=== PATIENT | male | born 1945 | race Two or more races ===

== ENCOUNTER 2019-07-14 13:02 | Inpatient (IN) | payer MEDICARE, OTHER ==
--- NOTE | 2019-07-14 13:40 | ED ---
Shortness of Breath - HPI Summary HPI Summary: 74-year-old Kyrgyz-speaking male with a significant past medical history type 2 diabetes, BPH, testicular cancer with metastases who has completed chemotherapy in April, recently tested positive for COVID-19 approximately 30 days ago presents to the emergency department today with a chief complaint of shortness of breath 3 days. Patient states his shortness of breath is made worse with exertion and he does not wear oxygen at home. Patient denies associated chest pain but does have lightheadedness with his shortness of breath. Patient has not taken any medication for his symptoms prior to arrival. Patient denies fevers, chest pain, abdominal pain, pain with urination , nausea, vomiting, diarrhea, rash. Patient denies smoking history. Patient denies past medical history of COPD and CHF. - History of Current Complaint Chief Complaint: EDShortnessOfBreath Time Seen by Provider: 07/14/19 13:09 Hx Obtained From: Patient, Varnish Thinner - Kyrgyz speaking Onset/Duration: Gradual Onset Dyspnea At: Rest Alleviating Factors: Oxygen Associated Signs & Symptoms: Cough (Nonproductive), Wheezing - Allergy/Home Medications Allergies/Adverse Reactions: Allergies Allergy/AdvReac Type Severity Reaction Status Date / Time No Known Allergies Allergy Verified 07/14/19 13:31 Home Medications: Home Medications Aspirin EC TAB* [Ecotrin EC Low Dose 81 MG*] 81 mg PO DAILY 07/14/19 [History Confirmed 07/14/19] Carvedilol TAB* [Coreg TAB*] 3.125 mg PO DAILY 07/14/19 [History Confirmed 07/13] Dorzolamide 2% OPTH (NF) [Trusopt 2% OPTH (NF)] 1 drop BOTH EYES DAILY 07/14/19 [History Confirmed 07/14/19] Ergocalciferol (Vitamin D2) [Vitamin D2] 50,000 unit PO DAILY 07/14/19 [History Confirmed 07/14/19] Finasteride TAB* [Proscar TAB*] 5 mg PO DAILY 07/14/19 [History Confirmed ] Lactulose* 15 ml PO DAILY 07/14/19 [History Confirmed 07/14/19] Latanoprost 0.005%* [Xalatan 0.005%*] 1 drop BOTH EYES QPM 07/14/19 [History Confirmed 07/14/19] Mirabegron (NF) [Myrbetriq (NF)] 25 mg PO DAILY 07/14/19 [History Confirmed ] Simvastatin TAB(NF) [Zocor(NF)] 20 mg PO DAILY 07/14/19 [History Confirmed 07/13] Sitaglip/Metform XR50/1000(NR) [Janumet Xr (NR)] 1 tab PO DAILY [History Confirmed 07/14/19] Timolol Maleate [Istalol] 1 drop BOTH EYES DAILY 07/14/19 [History Confirmed ] PMH/Surg Hx/FS Hx/Imm Hx Infectious Disease History: No Infectious Disease History: Denies: Traveled Outside the [place] in Last 30 Days - Social History Alcohol Use: None Substance Use Type: Reports: None Smoking Status (MU): Never Smoked Tobacco Review of Systems Constitutional: Negative Eyes: Negative ENT: Negative Cardiovascular: Negative Positive: Shortness Of Breath, Cough Gastrointestinal: Negative Genitourinary: Negative Musculoskeletal: Negative Skin: Negative Neurological/Mental Status: Negative Psychological: Normal All Other Systems Reviewed And Are Negative: Yes Physical Exam - Summary Physical Exam Summary: Patient in no acute distress. Patient seems fatigued and is having some difficulty speaking in full sentences. Pt has mild accessory muscle use with breathing. Triage Information Reviewed: Yes Vital Signs On Initial Exam: Initial Vitals Temp Pulse Resp BP Pulse Ox 96.8 F 94 12 116/80 97 07/14/19 13:23 07/14/19 13:23 07/14/19 13:23 07/14/19 13:23 07/14/19 13:23 Vital Signs Reviewed: Yes Appearance: Positive: Well-Appearing, No Pain Distress, Well-Nourished, Thin Skin: Positive: Warm, Skin Color Reflects Adequate Perfusion Eyes: Positive: EOMI, JULIA ENT: Positive: Hearing grossly normal Respiratory/Lung Sounds: Positive: Breath Sounds Present, Decreased Breath Sounds, Wheezes, Unable to speak in full sentences Cardiovascular: Positive: RRR, S1, S2 Abdomen Description: Positive: Nontender, Soft Bowel Sounds: Positive: Present Musculoskeletal: Positive: Strength/ROM Intact Neurological: Positive: Sensory/Motor Intact, Alert, Oriented to Person Place, Time, Normal Gait, Facial Symmetry, Speech Normal Psychiatric: Positive: Affect/Mood Appropriate, Anxious AVPU Assessment: Alert Procedures - Sedation Patient Received Moderate/Deep Sedation with Procedure: No Diagnostics - Vital Signs Vital Signs Temp Pulse Resp BP Pulse Ox 07/14/19 13:23 96.8 F 94 12 116/80 97 - Laboratory Result Diagrams: 07/15/19 05:30 07/15/19 05:30 Lab Statement: Any lab studies that have been ordered have been reviewed, and results considered in the medical decision making process. Course/Dx - Course Course Of Treatment: Patient was evaluated in the emergency department today for shortness of breath. Vitals were noted. Patient was hypoxic at approximately 84% on room air. Patient is satting at 99% on 4 L of oxygen via nasal cannula. EKG was done promptly which shows no evidence of STEMI. Normal sinus rhythm at a rate of 94 bpm. There is evidence of a right bundle branch block. There are ST depressions in lead V2 and V3 however there are no reciprocal ST elevations. No prior EKGs available for comparison. Chest x-ray was done which showed diffuse mixed interstitial and airspace disease. Labs show no leukocytosis with a white blood cell count of 7.5. There is mild anemia noted with an H&H of 10.9 and 32. There are no priors available for comparison. Lactic acid is 1.3 not significant for sepsis. There are no significant electrolyte abnormalities. There is a significant elevation in CRP at 121 likely due to pulmonary inflammation. Troponin returned at 0.02. BNP 53 , not suggestive for Acute heart failure. Hospitalist, Dr. Hsu was consulted for admission of the patient due to interstitial lung disease secondary to COVID-19 causing significant hypoxia with a O2 sat of 82% on RA. Labor Arbitrator agrees to admit. - Diagnoses Differential Diagnosis/HQI/PQRI: Positive: Airway Obstruction, Airway Foreign Body, Asthma, Bronchitis, CHF, COPD Exacerbation, Pneumonia Provider Diagnoses: Dyspnea - Critical Care Time Critical Care Statement: Critical care time is provided exclusive of any time spent performing procedures. Discharge ED - Sign-Out/Discharge Documenting (check all that apply): Patient Departure - Discharge Plan Condition: Stable Disposition: ADMITTED TO [facility] - Billing Disposition and Condition Condition: STABLE Disposition: Admitted to [facility] - Attestation Statements Provider Attestation: I was available for consultation for this patient. I did not evaluate the patient, or participate in any medical decision making or disposition decisions unless I am specifically named in the chart as having consulted on the patient. If I have consulted on the patient, please see my own ED note on the patient encounter. Bertrand Hu MD
[2019-07-14 16:36] LABS: ABS Lymphocytes 0.2 10^3/ul (1.0-4.8); ABS Monocytes 0.6 10^3/ul (0-0.8); ABS Neutrophils 6.7 10^3/ul (1.5-7.7); Eosinophil % 0.3 %; Hematocrit 32 % (42-52); Hemoglobin 10.9 g/dL (14.0-18.0); Lymphocyte % 2.3 %; Mean Corpuscular HGB Conc 34 g/dL (31-36); Mean Corpuscular Hemoglobin 32 pg (27-31); Mean Corpuscular Volume 93 fL (80-94); Mean Platelet Volume 9.8 fL (7.4-10.4); Platelet Count 209 10^3/uL (150-450); Red Blood Count 3.43 10^6 /uL (4.18-5.48); Red Cell Distribution Width 14 % (10-15); White Blood Count 7.5 10^3/uL (3.5-10.8)
[2019-07-14 16:56] LABS: Albumin 2.9 g/dL (3.2-5.2); Albumin/Globulin Ratio 0.9 (1-3); BUN/Creatinine Ratio 27.4 (8-20); C Reactive Protein 121.26 mg/L (<8.01); Calcium 8.5 mg/dL (8.6-10.3); EGFR African American 107.8 (>60); EGFR Non-African American 89.1 (>60); Globulin 3.2 g/dL (2-4); Total Bilirubin 0.7 mg/dL (0.2-1.0); Total Protein 6.1 g/dL (6.4-8.9)
[2019-07-14 16:58] LABS: Troponin I 0.02 ng/mL (<0.03)
[2019-07-14 17:14] LABS: Potassium 4.2 mmol/L (3.5-5.0)
[2019-07-14] MEDS ORDERED: NS 0.9% 1000 ML** 1,000 ML IV SCH (17:30)
[2019-07-14] MEDS ORDERED: Ondansetron INJ* 2 MG/ML VIAL IV PRN (18:09)
[2019-07-14] MEDS ORDERED: Azithromycin 500 mg/250 ml NS 500 MG/250 ML BAG IVPB ONE (18:09)
[2019-07-14] MEDS ORDERED: Dextrose 50% Syringe 50 ML* 25 GM/50 ML SYRINGE IV PUSH PRN (18:12)
[2019-07-14] MEDS ORDERED: Lactulose* 15 ML UDC PO PRN (19:10)
[2019-07-14] MEDS: cefTRIAXone(*) 1 GM in NS 0.9% 50 ML* 50 ML IVPB SCH (21:03)
[2019-07-14] MEDS: Insulin LISPRO* 1 UNITS UNIT SUBCUT SCH (21:57)
--- NOTE | 2019-07-14 22:06 | HP ---
Amended report to enter cosigning physician. ADMISSION HISTORY AND PHYSICAL: DATE OF ADMISSION: 07/14/19 PRIMARY CARE PROVIDER: Unknown. ATTENDING FOR THIS ADMISSION: Bigg Hsu MD* (dictated by Elizabeth Barr NP). CHIEF COMPLAINT: Shortness of breath and wet cough. HISTORY OF PRESENT ILLNESS: Most of this HPI is obtained from the patient's son as the patient is a poor historian, Sami speaking only with the use of mold stamper. Mr. Dillard is a 74-year-old old male with a known medical history of diabetes type 2, BPH, testicular cancer with possible metastasis, finished chemotherapy in April 2019. He is a resident of [facility] who started having symptoms of cough on 06/03/19. He told his son that he wanted to come up to stay with him here in [place], but his son, Luis Enrique Lopez, thought that he should stay and see if it resolves or not. On 06/08/19, the patient reported that his cough is gone, so his son met him [facility] in [place] and drove him the rest way up to [place]. Apparently on 06/14/19, the patient's son started developing a fever, the patient started becoming more lethargic, and they were both tested at the testing site on 06/20/19. Two days later, they were notified that the patient was positive, and 3 days later, they were notified that the patient's son was positive for COVID. The patient also complained of some decreased sense of taste. It appeared that his cough was improving, but over the past 2 or 3 days son noticed that he was coughing more, especially while lying flat. He also had fluctuating levels of appetite and energy. Yesterday, he also started complaining of constipation, so he took his prescription lactulose. Today, according to the son, he had an increased cough while seated upright which was new and it appeared that the cough was now wet. He also complained of shortness of breath which is a new complaint for him. When the department of health nurse contacted them to check up on them, they recommended that the patient present to the emergency room for further workup. Significantly for medical history, the patient's son states that he cannot raise his left upper extremity all the way due to a recent lymph node biopsy to which he also had a biopsy of the lymph node in his neck. He also recently saw insurance claim auditor in between chemo infusions and noted reduced function in one of the ventricles. PAST MEDICAL HISTORY: Diabetes type 2, BPH, testicular cancer with metastasis, hypertension. FAMILY HISTORY: Unknown. SOCIAL HISTORY: The patient is currently staying with his son, Luis Enrique Lopez, here in [place]. The patient has another son, Luis, who lives in [place]. The patient is a resident of [facility] and has been staying with his son ever since this pandemic started. He arrived here in [place] on 06/08/19. Son denies any tobacco, alcohol, or drug use. REVIEW OF SYSTEMS: Limited due to language barrier, but the patient does complain of some mild shortness of breath. He denies any other symptoms. PHYSICAL EXAMINATION GENERAL: The patient is lying in bed, frail appearing, slightly tachypneic, but no apparent distress. VITAL SIGNS: Temperature 96.8, heart rate 92-100, O2 saturation 100% on 2 L nasal cannula, blood pressure systolic 83-116 MAP 66-85. HEENT: Atraumatic/normocephalic. Sclerae are anicteric. NECK: Supple. PULMONARY: Diminished throughout. CVS: Regular rate. S1 and S2. No obvious murmurs. ABDOMEN: Soft, nontender, nondistended. Bowel sounds are positive. EXTREMITIES: No edema. SKIN: Dry and intact. Warm. NEUROLOGIC: The patient is awake, alert, unable to answer orientation questions at this time, there is a language barrier and patient does not seem to understand some questions, even with the use of mold stamper. Follows all commands. Pupils equal and reactive at 4 mm. No clear focal deficits. DIAGNOSTIC STUDIES: Chest x-ray on 07/14/19 at 1332, diffuse mixed interstitial and airspace disease. IMPRESSION: This is a 74-year-old male with a known medical history of diabetes , BPH, testicular cancer with metastasis, and hypertension who presents on 07/13 after experiencing subjective complaints of shortness of breath, increased wet cough, and some constipation. PLAN: The patient will be admitted to ICU for tachypnea, requiring 2 L nasal cannula with his baseline of 0 and his MAP slightly low. He is in no apparent distress. He is lying in bed, comfortable but tachypneic. Chest x-ray completed. No other imaging needed at this time. 1. COVID positive on 06/20/19. We will repeat COVID testing this visit. We will maintain isolation precautions until results are finalized. 2. Acute hypoxic respiratory failure, likely due to COVID, but cannot rule out superimposed bacterial pneumonia. We will start treatment for community- acquired pneumonia with ceftriaxone and azithromycin. We will obtain cultures prior to initiation of these medications. Blood cultures were already sent in the emergency room. We will add urinalysis and sputum culture. Maintain oxygen saturation greater than 92%. Continue his O2 monitoring. 3. Tachypnea, likely viral versus bacterial pneumonia related. Patient appears comfortable and is only slightly tachypneic. Continue to monitor. 4. Diabetes. Okay to start consistent carb diet. We will check blood sugars a.c., h.s. with sliding scale. 5. Slight hypotension. Asymptomatic at this time. Encourage p.o. intake. We will limit IV fluids on this patient. 6. GI prophylaxis is not indicated. 7. We will use SCDs for DVT prophylaxis at this time. 8. The patient is a full code. Plan of care discussed with Dr. Bigg Hsu and he is in agreement. TIME SPENT: Greater than 60 minutes on admission planning, more than half spent interviewing the patient with mold stamper and speaking with both the patient's sons over the phone. ELIZABETH BARR NP [id number]/[facility] #: [id number] ZOILA
[2019-07-15 02:24] LABS: Urine Appearance Clear; Urine Bilirubin Negative (Negative); Urine Blood Negative (Negative); Urine Color Yellow; Urine Glucose Negative (Negative); Urine Ketones Trace (Negative); Urine Nitrite Negative (Negative); Urine Protein Negative (Negative); Urine Urobilinogen Negative (Negative)
[2019-07-15 05:42] LABS: ABS Eosinophils 0.1 10^3/ul (0-0.6); ABS Lymphocytes 0.2 10^3/ul (1.0-4.8); ABS Monocytes 0.6 10^3/ul (0-0.8); Eosinophil % 1.1 %; Hematocrit 30 % (42-52); Hemoglobin 10.3 g/dL (14.0-18.0); Lymphocyte % 3.9 %; Mean Corpuscular HGB Conc 34 g/dL (31-36); Mean Corpuscular Hemoglobin 32 pg (27-31); Mean Corpuscular Volume 92 fL (80-94); Mean Platelet Volume 9.2 fL (7.4-10.4); Platelet Count 158 10^3/uL (150-450); Red Blood Count 3.28 10^6 /uL (4.18-5.48); Red Cell Distribution Width 14 % (10-15); White Blood Count 4.8 10^3/uL (3.5-10.8)
[2019-07-15 05:56] LABS: C Reactive Protein 89.04 mg/L (<8.01); Calcium 7.9 mg/dL (8.6-10.3); EGFR African American 119.2 (>60); EGFR Non-African American 98.5 (>60); Potassium 3.5 mmol/L (3.5-5.0)
[2019-07-15] MEDS: Insulin LISPRO* 1 UNITS UNIT SUBCUT SCH ×4 (07:33→21:06)
[2019-07-15] MEDS ORDERED: ERGOCALCIFEROL 50000 UNIT PO SCH (09:00)
[2019-07-15] MEDS ORDERED: Carvedilol TAB* 3.125 MG PO SCH ×2 (09:00→09:29)
[2019-07-15] MEDS ORDERED: Lactulose* 15 ML UDC PO SCH (09:00)
[2019-07-15] MEDS: CMCS:Dorzolamide 2% OPTH (NF) 10 ML BTL BOTH EYES SCH (09:03)
[2019-07-15] MEDS: Aspirin EC TAB* 81 MG TAB.EC PO SCH (09:03)
[2019-07-15] MEDS: Atorvastatin* 10 MG TAB PO SCH (09:03)
[2019-07-15] MEDS: Finasteride TAB* 5 MG PO SCH (09:03)
[2019-07-15] MEDS: Timolol 0.5% OPTH.SOL* BTL BOTH EYES SCH (09:04)
[2019-07-15] MEDS: Mirabegron (NF) 25 MG TAB PO SCH (09:05)
[2019-07-15] MEDS ORDERED: Magnesium Hydroxide LIQ* 30 ML UDC PO ONE (10:19)
--- NOTE | 2019-07-15 10:36 | PN ---
Date of Service: 07/15/19 Critical Care Services: Admitted to ICU overnight for monitoring. He had a good night, he feels good this morning. His only concern is that he is feeling constipated Vital Signs: Temp Pulse Resp BP SpO2 FiO2 98.0 F 86 22 104/86 99 07/15/19 09:01 07/15/19 09:30 07/15/19 09:30 07/15/19 09:30 07/15/19 09:30 Physical Exam: Gen: Awake, alert, sitting up in bed, NAD HEENT: atraumatic, normocephalic, moist mucous membranes, neck supple Lungs: CTAB Cardiac: normal rate, s1s2, no obvious murmurs Abdomen: soft, nontender, nondistended, BS+ Extremities: No edema, skin is warm, dry and intact Neuro: Awake, alert, oriented x3. Follows all commands. PERRL 4mm. Strength 5/5 all extremities. No gross focal deficits. Fluid Balance (Past 24 Hours): I= O= Net Intake & Output 07/13/19 07/14/19 07/15/19 07/16/19 06:59 06:59 06:59 06:59 Intake Total 244 400 Output Total 100 0 Balance 144 400 Weight 132 lb 4.438 oz 109 lb 1.336 oz Intake: IV Fluids 144 NS (0.9%) 144 Oral 100 400 Output: Urine 100 0 Labs: Laboratory Results - last 24 hr 07/14/19 07/14/19 07/14/19 16:00 16:00 16:00 WBC 7.5 RBC 3.43 L Hgb 10.9 L Hct 32 L MCV 93 MCH 32 H MCHC 34 RDW 14 Plt Count 209 MPV 9.8 Neut % (Auto) 89.0 Lymph % (Auto) 2.3 [place] % (Auto) 8.0 Eos % (Auto) 0.3 Baso % (Auto) 0.4 Absolute Neuts (auto) 6.7 Absolute Lymphs (auto) 0.2 L Absolute Monos (auto) 0.6 Absolute Eos (auto) 0.0 Absolute Basos (auto) 0.0 Absolute Nucleated RBC 0.0 Nucleated RBC % 0.0 Sodium 138 Potassium 4.2 Chloride 101 Carbon Dioxide 29 Anion Gap 8 BUN 23 Creatinine 0.84 Est GFR ( Amer) 107.8 Est GFR (Non-Af Amer) 89.1 BUN/Creatinine Ratio 27.4 H Glucose 136 H Lactic Acid 1.3 Calcium 8.5 L Total Bilirubin 0.70 AST 28 ALT 38 Alkaline Phosphatase 126 H Troponin I 0.02 C-Reactive Protein 121.26 H B-Natriuretic Peptide Total Protein 6.1 L Albumin 2.9 L Globulin 3.2 Albumin/Globulin Ratio 0.9 L Urine Color Urine Appearance Urine pH Ur Specific [place] Urine Protein Urine Ketones Urine Blood Urine Nitrate Urine Bilirubin Urine Urobilinogen Ur Leukocyte Esterase Urine Glucose 07/14/19 07/15/19 07/15/19 16:00 02:00 05:30 WBC 4.8 RBC 3.28 L Hgb 10.3 L Hct 30 L MCV 92 MCH 32 H MCHC 34 RDW 14 Plt Count 158 MPV 9.2 Neut % (Auto) 82.1 Lymph % (Auto) 3.9 [place] % (Auto) 12.4 Eos % (Auto) 1.1 Baso % (Auto) 0.5 Absolute Neuts (auto) 4.0 Absolute Lymphs (auto) 0.2 L Absolute Monos (auto) 0.6 Absolute Eos (auto) 0.1 Absolute Basos (auto) 0.0 Absolute Nucleated RBC 0.0 Nucleated RBC % 0.0 Sodium Potassium Chloride Carbon Dioxide Anion Gap BUN Creatinine Est GFR ( Amer) Est GFR (Non-Af Amer) BUN/Creatinine Ratio Glucose Lactic Acid Calcium Total Bilirubin AST ALT Alkaline Phosphatase Troponin I C-Reactive Protein B-Natriuretic Peptide 53 Total Protein Albumin Globulin Albumin/Globulin Ratio Urine Color Yellow Urine Appearance Clear Urine pH 5.0 Ur Specific [place] 1.020 Urine Protein Negative Urine Ketones Trace A Urine Blood Negative Urine Nitrate Negative Urine Bilirubin Negative Urine Urobilinogen Negative Ur Leukocyte Esterase Negative Urine Glucose Negative 07/15/19 05:30 WBC RBC Hgb Hct MCV MCH MCHC RDW Plt Count MPV Neut % (Auto) Lymph % (Auto) [place] % (Auto) Eos % (Auto) Baso % (Auto) Absolute Neuts (auto) Absolute Lymphs (auto) Absolute Monos (auto) Absolute Eos (auto) Absolute Basos (auto) Absolute Nucleated RBC Nucleated RBC % Sodium 136 Potassium 3.5 Chloride 104 Carbon Dioxide 27 Anion Gap 5 BUN 20 Creatinine 0.77 Est GFR ( Amer) 119.2 Est GFR (Non-Af Amer) 98.5 BUN/Creatinine Ratio 26.0 H Glucose 126 H Lactic Acid Calcium 7.9 L Total Bilirubin AST ALT Alkaline Phosphatase Troponin I C-Reactive Protein 89.04 H B-Natriuretic Peptide Total Protein Albumin Globulin Albumin/Globulin Ratio Urine Color Urine Appearance Urine pH Ur Specific [place] Urine Protein Urine Ketones Urine Blood Urine Nitrate Urine Bilirubin Urine Urobilinogen Ur Leukocyte Esterase Urine Glucose Studies: No new studies Nutrition: Consistent carb diet Impression: 74M with known medical history of DM, BPH, HTN and testicular cancer with metastasis, presents on 07/14/19 with subjective complaints of shortness of breath, increased wet cough, and some constipation. He tested positive for COVID on 06/20/19. He is originally from [facility] but has been staying with his son since 06/08/19. Upon admission to ED, his O2 saturation was 84% on room air and MAP slightly low. Admitted to ICU for monitoring and retested for COVID. 1. COVID 2. SOB 3. Hypoxia 4. DM Plan: NEURO: - No active issues CVS: - MAP has been on the low end of normal. Patient does have a history of HTN but according to his son, he doesnt take his medications regularly when feeling unwell. Will continue home coreg with hold parameters. - HR is well controlled. No edema PULM: - SOB, hypoxia. Viral PNA vs CAP. Will continue supportive care. Continue antibiotics for 48hrs total, if cultures are negative, discontinue. - Weaning down O2. Currently on 2LNC. Wean to sat above 92% GI: - No active issues - Continue DM diet RENAL: - No active issues. Electrolytes WNL ENDOCRINE: - DM. Continue DM diet and low dose insulin sliding scale. HEME: - SCDs for DVT prophylaxis ID: - Afebrile. Concern for viral PNA vs CAP. Continue abx for 1 more day and then discontinue if cultures are negative MSK: OOB as tolerated. DISPOSITION: Ok to transfer to floor. patient is and has been stable throughout the night CODE STATUS: Full
[2019-07-15] MEDS ORDERED: Azithromycin IV(*) 250 MG in NS 0.9% 250 ML* 250 ML IVPB SCH (18:00)
[2019-07-15] MEDS: cefTRIAXone(*) 1 GM in NS 0.9% 50 ML* 50 ML IVPB SCH (21:10)
[2019-07-15] MEDS: Latanoprost 0.005%* 2.5 ml BTL BOTH EYES SCH (21:10)
[2019-07-16] MEDS: Insulin LISPRO* 1 UNITS UNIT SUBCUT SCH (07:40)
[2019-07-16] MEDS: Aspirin EC TAB* 81 MG TAB.EC PO SCH (08:58)
[2019-07-16] MEDS: Finasteride TAB* 5 MG PO SCH (08:58)
[2019-07-16] MEDS: Atorvastatin* 10 MG TAB PO SCH (08:58)
[2019-07-16] MEDS: CMCS:Dorzolamide 2% OPTH (NF) 10 ML BTL BOTH EYES SCH (08:58)
[2019-07-16] MEDS: Timolol 0.5% OPTH.SOL* BTL BOTH EYES SCH (08:59)
[2019-07-16] MEDS: Mirabegron (NF) 25 MG TAB PO SCH (08:59)
--- NOTE | 2019-07-16 13:21 | PN ---
Subjective Date of Service: 07/16/19 Interval History: Patient is feeling well. Patient denies cough, sputum production, SOB, wheezing , CP, N/V, abdominal pain, diarrhea, or other pain. Patient is anxious to go home. Family History: Unchanged from Admission Social History: Unchanged from Admission Past Medical History: Unchanged from Admission Objective Active Medications: Aspirin (Aspirin Ec Tab*) 81 mg PO DAILY [facility] Last Admin: 07/16/19 08:58 Dose: 81 mg Atorvastatin Calcium (Lipitor*) 10 mg PO DAILY [facility] Last Admin: 07/16/19 08:58 Dose: 10 mg Carvedilol (Coreg Tab*) 3.125 mg PO DAILY [facility] Last Admin: 07/16/19 07:41 Dose: Not Given Dorzolamide HCl (Trusopt 2% Opth (Nf)) 1 drop BOTH EYES DAILY [facility]; Protocol Last Admin: 07/16/19 08:58 Dose: 1 drop Finasteride (Proscar Tab*) 5 mg PO DAILY [facility] Last Admin: 07/16/19 08:58 Dose: 5 mg Ceftriaxone Sodium 1 gm/ (Sodium Chloride) 50 mls @ 100 mls/hr IVPB Q24HR@2100 [facility]ANNA Last Admin: 07/15/19 21:10 Dose: 100 mls/hr Azithromycin 250 mg/ Sodium (Chloride) 250 mls @ 250 mls/hr IVPB Q24H [facility]AN[facility] Stop: 07/19/19 23:59 Lactulose (Lactulose*) 15 ml PO DAILY PRN PRN Reason: CONSTIPATION Last Admin: 07/15/19 10:16 Dose: 15 ml Latanoprost (Xalatan 0.005%*) 1 drop BOTH EYES BEDTIME [facility] Last Admin: 07/15/19 21:10 Dose: 1 drop Metformin HCl (Glucophage*) 500 mg PO BID WITH MEALS [facility] Mirabegron (Myrbetriq (Nf)) 25 mg PO DAILY [facility] Last Admin: 07/16/19 08:59 Dose: Not Given Ondansetron HCl (Zofran Inj*) 4 mg IV Q6H PRN PRN Reason: NAUSEA Sitagliptin Phosphate (Januvia (Nf)) 50 mg PO DAILY [facility] Timolol Maleate (Timoptic 0.5% Opth*) 1 drop BOTH EYES DAILY [facility] Last Admin: 07/16/19 08:59 Dose: 1 drop Vital Signs - 8 hr 07/16/19 07/16/19 07/16/19 07:15 07:42 11:15 Temperature 98.4 F 97.5 F Pulse Rate 84 84 Respiratory 18 18 20 Rate Blood Pressure 95/66 94/62 (mmHg) O2 Sat by Pulse 99 99 98 Oximetry Oxygen Devices in Use Now: None Appearance: Patient is a 74yo male who appears stated age and is sitting in the bed in NAD. Eyes: No Scleral Icterus, PERRLA Ears/Nose/Mouth/Throat: NL Teeth, Lips, Gums, Clear Oropharnyx, Mucous Membranes Moist Neck: NL Appearance and Movements; NL JVP, Trachea Midline Respiratory: Symmetrical Chest Expansion and Respiratory Effort, Clear to Auscultation Cardiovascular: NL Sounds; No Murmurs; No JVD, RRR Abdominal: NL Sounds; No Tenderness; No Distention, No Hepatosplenomegaly Lymphatic: No Cervical Adenopathy Extremities: No Edema, No Clubbing, Cyanosis Skin: No Rash or Ulcers, No Nodules or Sclerosis Neurological: Alert and Oriented x 3, NL Sensation, NL Muscle Strength and Tone , - - CN II-XII intact. Result Diagrams: 07/15/19 05:30 07/15/19 05:30 Microbiology and Other Data: Microbiology 07/14/19 16:15 Aerobic Blood Culture - Preliminary Blood Venous No Growth Day 1 Anaerobic Blood Culture - Preliminary No Growth Day 1 07/14/19 16:00 Aerobic Blood Culture - Preliminary Blood Venous No Growth Day 1 Anaerobic Blood Culture - Preliminary No Growth Day 1 Assess/Plan/Problems-Billing Assessment: Patient is a 74yo male with a PMH for HTN, DM II, Metastatic testicular cancer, here with respiratory failure in the setting of recent COVID infection, improving on antibiotics. - Patient Problems (1) Acute respiratory failure with hypoxia Current Visit: Yes Status: Acute Code(s): J96.01 - ACUTE RESPIRATORY FAILURE WITH HYPOXIA SNOMED Code(s): 32982304 Comment: - Initially requiring 5L O2 - Now resolved - Likely due to PNA. (2) Pneumonia Current Visit: Yes Status: Acute Code(s): J18.9 - PNEUMONIA, UNSPECIFIED ORGANISM SNOMED Code(s): 640451836 Comment: - Pneumonia, question as to whether due to COVID or bacterial superinfection - Given rapid improvment on antibiotics, likely due to bacterial cause - Continue Ceftriaxone (07/13-) and Azithromycin (07/13-). Planned 7 and 5 day course planned. - Repeat COVID test pending. (3) HTN (hypertension) Current Visit: Yes Status: Acute Code(s): I10 - ESSENTIAL (PRIMARY) HYPERTENSION SNOMED Code(s): 94080373 Comment: - Hypotensive, has been having this issue since contracted COVID in May - Hold Coreg and monitor. (4) DM II (diabetes mellitus, type II), controlled Current Visit: Yes Status: Acute Code(s): E11.9 - TYPE 2 DIABETES MELLITUS WITHOUT COMPLICATIONS SNOMED Code(s): 26571292 Comment: - Well controlled, Stop SSI and resume home Metformin/Januvia. (5) Full code status Current Visit: Yes Status: Acute Code(s): Z78.9 - OTHER SPECIFIED HEALTH STATUS SNOMED Code(s): 883884801 (6) DVT prophylaxis Current Visit: Yes Status: Acute Code(s): Z29.9 - ENCOUNTER FOR PROPHYLACTIC MEASURES, UNSPECIFIED SNOMED Code(s): 793422038 Comment: - Lovenox Status and Disposition: Inpatient, hopeful D/C in AM.
[2019-07-16] MEDS: metFORMIN* 500 MG TAB PO SCH (17:35)
[2019-07-16] MEDS: Latanoprost 0.005%* 2.5 ml BTL BOTH EYES SCH (20:15)
[2019-07-16] MEDS ORDERED: Azithromycin IV(*) 250 MG in NS 0.9% 250 ML* 250 ML IVPB SCH (21:00)
[2019-07-16] MEDS ORDERED: Enoxaparin(*) 40 MG/0.4 ML SYR SUBCUT SCH (21:00)
[2019-07-16] MEDS: cefTRIAXone(*) 1 GM in NS 0.9% 50 ML* 50 ML IVPB SCH (23:11)
[2019-07-16] MEDS ORDERED: NS 0.9% 500 ML* 500 ML IV ONE (23:30)
[2019-07-17 06:01] LABS: Hematocrit 28 % (42-52); Hemoglobin 9.8 g/dL (14.0-18.0); Mean Corpuscular HGB Conc 35 g/dL (31-36); Mean Corpuscular Hemoglobin 32 pg (27-31); Mean Corpuscular Volume 93 fL (80-94); Mean Platelet Volume 8.9 fL (7.4-10.4); Platelet Count 198 10^3/uL (150-450); Red Blood Count 3.05 10^6 /uL (4.18-5.48); Red Cell Distribution Width 14 % (10-15); White Blood Count 5.1 10^3/uL (3.5-10.8)
[2019-07-17 06:17] LABS: BUN/Creatinine Ratio 22.2 (8-20); C Reactive Protein 31.82 mg/L (<8.01); Calcium 7.6 mg/dL (8.6-10.3); EGFR African American 179.5 (>60); EGFR Non-African American 148.3 (>60); Magnesium 1.4 mg/dL (1.9-2.7); Potassium 3.4 mmol/L (3.5-5.0)
[2019-07-17] MEDS ORDERED: Magnesium Sulf 4 GM/100 ML IV* 4,000 MG/100 ML BAG IVPB ONE (07:20)
[2019-07-17 07:31] LABS: ABS Lymphocytes 0.2 10^3/ul (1.0-4.8); ABS Monocytes 0.6 10^3/ul (0-0.8); ABS Neutrophils 4.2 10^3/ul (1.5-7.7); Eosinophil % 0.8 %; Lymphocyte % 4.5 %
[2019-07-17] MEDS ORDERED: CMCS:Sitagliptin (NF) 50 MG TAB PO SCH (09:00)
[2019-07-17] MEDS: metFORMIN* 500 MG TAB PO SCH (09:11)
[2019-07-17] MEDS: Finasteride TAB* 5 MG PO SCH (09:11)
[2019-07-17] MEDS: Mirabegron (NF) 25 MG TAB PO SCH (09:11)
[2019-07-17] MEDS: Atorvastatin* 10 MG TAB PO SCH (09:11)
[2019-07-17] MEDS: CMCS:Dorzolamide 2% OPTH (NF) 10 ML BTL BOTH EYES SCH (09:11)
[2019-07-17] MEDS: Aspirin EC TAB* 81 MG TAB.EC PO SCH (09:11)
[2019-07-17] MEDS: Timolol 0.5% OPTH.SOL* BTL BOTH EYES SCH (09:12)
[2019-07-17 13:07] VITALS: BP 108/68
--- NOTE | 2019-07-17 19:58 | DS ---
CC: [facility]; Dr. Sally Case* DISCHARGE SUMMARY: DATE OF ADMISSION: 07/14/19 DATE OF DISCHARGE: 07/17/19 PRIMARY CARE PROVIDER: None. MY ATTENDING WHILE IN THE HOSPITAL: Dr. Sally Case* (dictated by JOSE E Mendoza). PRIMARY DISCHARGE DIAGNOSES: 1. Acute hypoxic respiratory failure, resolved. 2. Likely bacterial pneumonia. 3. COVID-19 positive infection. SECONDARY DISCHARGE DIAGNOSES: 1. Possible heart failure. 2. Diabetes mellitus, type 2. 3. 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 4 Benign prostatic hypertrophy. 5. History of hypertension. 6. Possible heart failure, unclear type. STUDIES DONE WHILE IN THE HOSPITAL: Chest x-ray from 07/14/19 read as diffuse mixed interstitial and airspace disease. Electrocardiogram showed normal sinus rhythm, right bundle branch block, left axis deviation. No significant ST segment elevation or depression. No hypertrophy or enlargement. MEDICATIONS AT DISCHARGE: 1. Aspirin 81 mg p.o. daily. 2. Simvastatin 20 mg p.o. daily. 3. Finasteride 5 mg p.o. daily. 4. Janumet one tab p.o. daily. 5. Lactulose 50 mg p.o. daily as needed. 6. Timolol 1 drop to both eyes daily. 7. Dorzolamide 1 drop both eyes daily. 8. Latanoprost 1 drop both eyes nightly. 9. Vitamin D2 50,000 units p.o. daily. 10. Myrbetriq 25 mg p.o. daily. 11. Azithromycin 250 mg p.o. daily x2 doses. 12. Cefuroxime 500 mg p.o. b.i.d. x10 doses. NEW MEDICATIONS AT DISCHARGE: 1. Azithromycin. 2. Cefuroxime. MEDICATIONS DISCONTINUED AT DISCHARGE: Coreg 3.125 mg p.o. daily. HOSPITAL COURSE: This is a brief summary of the patient's presentation. For more details, please see history and physical from Jaz Robbins NP on 07/13. In brief, the patient is a 74-year-old male with past medical history significant for the above, who is mainly Citizen Of [place] speaking, so most of his medical history is obtained from his son, Luis Enrique Dillard Jr., who lives in [place] , who he has been living with since the middle of May. The patient began to have symptoms of a cough in mid May, 06/03/19. The patient's symptoms then waxed and waned until 06/14/19 when the patient's son began having symptoms of a cough. They were both tested for COVID on 06/20/19 and this came back positive. The patient has had significant improvement in his cough since then and was doing relatively well. The patient, however, had a worsening in his cough 3 days before admission. The patient due to increased cough was referred to the emergency department and was found to be hypotensive, which his son states has been an issue for him since he has come up to [place] and was found to be hypoxic with saturations in the mid 80s on room air. The patient initially needed 5 L of oxygen to maintain a saturation above 92%; however, his oxygen saturations began to improve quickly with antibiotics for community acquired pneumonia for presumed bacterial superinfection on his known COVID. The patient had a repeat COVID test. The patient was able to be transferred out of the ICU on 07/15/19 and was able to be weaned off his oxygen on . The patient's blood sugars were not control and his home antihyperglycemic medications were restarted. The patient's blood pressure remained relatively low while in the hospital; however, he was asymptomatic. The patient's Coreg was discontinued due to this low blood pressures and there was no signs of rebound tachycardia or hypertension. The patient was able to ambulate without hypoxia or severe shortness of breath. The patient's repeat COVID test came back positive. He is kept on isolation precautions. The patient was stable and amenable for discharge to home with continuation of oral antibiotics on 07/17/19. PHYSICAL EXAMINATION ON DISCHARGE: General: The patient is a 74-year-old fit male who appears stated age and sitting comfortably in bed, in no acute distress. Vital Signs: At the time of evaluation, temperature is 97.1, pulse rate 89, respiratory rate 16, oxygen saturation 98% on room air, blood pressure 108/68. HEENT: Normocephalic, atraumatic. Sclerae anicteric. No conjunctival injection. Nasal mucosa moist. Oral mucosa moist. No pharyngeal erythema, discharge, or exudate. Neck: Supple, nontender. No lymphadenopathy. No carotid bruits auscultated. No JVD. Cardiac: Regular rate and rhythm. No clicks, murmurs, gallops, or rubs. Pulses 2+ in bilateral dorsalis pedis, posterior tibialis, and radial areas. Respiratory: Clear to auscultation bilaterally. No wheezes, rales, or rhonchi. Good air exchange bilaterally. Abdomen: Soft, nontender, and nondistended. Bowel sounds present, normoactive in all 4 quadrants. No hepatosplenomegaly. No abdominal bruits auscultated. No hepatojugular reflux. Genitourinary: No suprapubic or CVA tenderness. Skin : Clean, dry, and intact. No rashes. Neuro: Cranial nerves II through XII intact. No focal deficits. Alert and oriented x3. Normal gait. Psychiatric: Pleasant, cooperative. DISCHARGE PLAN BY PROBLEM: 1. Acute hypoxic respiratory failure, pneumonia, COVID-19. The patient's respiratory failure is resolved. The patient improved greatly with both his oxygen saturation, vital signs and CRP on antibiotics. Given the patient is now over 6 weeks from his initial symptoms and over 3 weeks from his initial positive COVID test, it is unlikely this is related to the patient's COVID pneumonia and likely represents a bacterial superinfection. Continue the patient's azithromycin for a total of 5 days and cephalosporin antibiotics for a total of 7 days of treatment. The patient should follow up with [facility] for his COVID positive test and testing should be repeated as necessary to guide isolation precautions. 2. Hypotension. The patient's hypotension is a new problem for him as far as he knows; however, the patient has been having issues with hypotension and has been nonsymptomatic from this. The patient's Coreg was discontinued while in the hospital. The patient should continue to have this monitored through his primary creatinine provider and [facility] as well as his son on an ongoing basis. The patient should return to the hospital for dizziness on standing or other alarming symptoms. Records at some point should be obtained from the patient's [facility] if the patient has ventricular dysfunction from heart failure. This should be further clarified and his therapy should be optimized as able, though this may be difficult given his hypotension. 3. Possible heart failure. The patient is not showing signs of being in heart failure exacerbation at this time. Coreg has been held as above for hypotension. The patient should follow up with outpatient [facility] when available after the COVID issue is resolved. 4. Testicular cancer with possible metastasis. The patient completed chemotherapy reportedly in April 2019. The patient should follow up with his outpatient oncologist when able. 5. BPH. Continue the patient's finasteride. 6. Diabetes mellitus, type 2. This is very well controlled while in the hospital. Continue the patient's Janumet. 7. Presumed glaucoma. Continue the patient's eye drops. DISPOSITION: Home. CONDITION: Stable. TIME SPENT: Approximately 60 minutes was spent on discharge of this patient's, 30 of which was spent [id number] with the patient obtaining history and physical and discussing treatment plan. JOSE E MENDOZA [id number]/CPS #: [id number] MTDD
== END 2019-07-17 16:00 | disposition home or self-care (01) | DRG 177 ==
LOC: ED 13:02 → ICU 18:01 → MED 07-15 09:23
PROVIDERS: ADMIT Internal Medicine Critical Care Medicine; ATTEND Internal Medicine
DX: U07.1 COVID-19 (principal); J96.01 Acute respiratory failure with hypoxia; J15.9 Unspecified bacterial pneumonia; I50.9 Heart failure, unspecified; E11.9 Type 2 diabetes mellitus without complications; I11.0 Hypertensive heart disease with heart failure; C62.90 Malignant neoplasm of unspecified testis, unspecified whether descended or undescended; N40.0 Benign prostatic hyperplasia without lower urinary tract symptoms; I95.9 Hypotension, unspecified; H40.9 Unspecified glaucoma; E11.65 Type 2 diabetes mellitus with hyperglycemia; Z79.84 Long term (current) use of oral hypoglycemic drugs; Z79.82 Long term (current) use of aspirin; Z79.899 Other long term (current) drug therapy
CPT/HCPCS: 36415; 71045; 80048; 80053; 81003; 83605; 83735; 83880; 84484; 85025; 86140; 87040; 87635; 93005; 99284; A9270-GY; J0456; J0696; J1650; J3475; U0003